=== PATIENT | male | born 1940 | race Caucasian/White ===

== ENCOUNTER → 2020-09-04 | Outpatient (CLI) | payer MEDICARE | LOC: RAD 10:31 | PROVIDERS: ATTEND Internal Medicine | DX: I47.1 Supraventricular tachycardia (principal) | CPT/HCPCS: 93306 ==

== ENCOUNTER 2022-11-24 08:28 | Observation (INO) | payer MEDICARE ==
[~2022-11-24] VITALS: Ht 172.7 cm; Wt 74.8 kg
[2022-11-24] MEDS ORDERED: SODIUM CHLORIDE FLUSH 10 ML SYR IV PRN (08:45)
[2022-11-24] MEDS ORDERED: DILTIAZEM HCL 5 MG/ML 5 ML VIAL IV ONE (08:45)
[2022-11-24] MEDS ORDERED: ASPIRIN 81 MG CHEW TAB PO ONE ×2 (08:45→10:30)
[2022-11-24 08:53] LABS: BASOPHILS # (AUTO) 0.1 (0.0-0.1); BASOPHILS % 0.7 % (0.0-1.0); EOSINOPHILS # (AUTO) 0.2 (0.0-0.4); EOSINOPHILS % 2.3 % (0.0-6.0); HEMATOCRIT 47.7 % (38.2-49.6); HEMOGLOBIN 15.8 g/dL (14.0-18.0); LYMPHOCYTES # (AUTO) 1.4 (1.0-3.2); LYMPHOCYTES % 18.6 % (18.0-39.1); MEAN CORPUSCULAR HEMOGLOBIN 31.9 pg (28-32); MEAN CORPUSCULAR HGB CONC 33.1 g/dL (31-35); MEAN CORPUSCULAR VOLUME 96.4 fL (81-99); MONOCYTES # (AUTO) 0.6 (0.2-0.8); MONOCYTES % 7.9 % (4.4-11.3); NEUTROPHILS # (AUTO) 5.4 (2.1-6.9); NEUTROPHILS % 70.2 % (38.7-80.0); PLATELET COUNT 237 x10e3/uL (140-360); RED BLOOD COUNT 4.95 x10e6/uL (4.3-5.7); RED CELL DISTRIBUTION WIDTH 12.6 % (11.7-14.4); WHITE BLOOD COUNT 7.69 x10e3/uL (4.8-10.8)
[2022-11-24 09:14] LABS: ALBUMIN 4.6 g/dL (3.5-5.0); ALBUMIN/GLOBULIN RATIO 1.4 (0.8-2.0); ANION GAP 15.9 mmol/L (8-16); CALCIUM 9.6 mg/dL (8.4-10.2); CREATININE, SERUM 1.1 mg/dL (0.72-1.25); POTASSIUM 3.9 mmol/L (3.5-5.1)
[2022-11-24] MEDS ORDERED: ONDANSETRON HCL INJ 2MG/ML 2ML 2 MG/ML VIAL IV PRN (10:30)
[2022-11-24] MEDS ORDERED: SODIUM CHLORIDE FLUSH 10 ML SYR INJ PRN (10:30)
[2022-11-24] MEDS: ENOXAPARIN INJ 80 MG/0.8 ML SYR SC SCH ×2 (10:52→20:36)
[2022-11-24] MEDS: DILTIAZEM HCL 30 MG TAB PO SCH ×3 (12:15→20:36)
[2022-11-24 13:00] VITALS: BP 138/81; PULSE 118; RESP 18; TEMP 98.4; O2SAT 100
[2022-11-24 13:45] VITALS: BP 128/82; PULSE 87; RESP 20; TEMP 98.1; O2SAT 100
[2022-11-24] MEDS: METOPROLOL TARTRATE 50 MG TAB PO SCH (18:12)
[2022-11-24 20:00] VITALS: BP 154/84; PULSE 80; RESP 20; TEMP 97.8; O2SAT 100
[2022-11-25 00:48] VITALS: BP 114/80; PULSE 77; RESP 18; TEMP 98.3; O2SAT 99
[2022-11-25 04:31] VITALS: BP 125/69; PULSE 57; RESP 19; TEMP 97.6; O2SAT 100
[2022-11-25 06:08] LABS: BASOPHILS # (AUTO) 0.1 (0.0-0.1); BASOPHILS % 0.9 % (0.0-1.0); EOSINOPHILS # (AUTO) 0.2 (0.0-0.4); EOSINOPHILS % 2.2 % (0.0-6.0); HEMATOCRIT 45.4 % (38.2-49.6); HEMOGLOBIN 14.8 g/dL (14.0-18.0); LYMPHOCYTES # (AUTO) 1.7 (1.0-3.2); LYMPHOCYTES % 20.8 % (18.0-39.1); MEAN CORPUSCULAR HEMOGLOBIN 31.6 pg (28-32); MEAN CORPUSCULAR HGB CONC 32.6 g/dL (31-35); MEAN CORPUSCULAR VOLUME 96.8 fL (81-99); MONOCYTES # (AUTO) 0.8 (0.2-0.8); NEUTROPHILS # (AUTO) 5.3 (2.1-6.9); NEUTROPHILS % 65.6 % (38.7-80.0); PLATELET COUNT 207 x10e3/uL (140-360); RED BLOOD COUNT 4.69 x10e6/uL (4.3-5.7); RED CELL DISTRIBUTION WIDTH 12.5 % (11.7-14.4); WHITE BLOOD COUNT 8.09 x10e3/uL (4.8-10.8)
[2022-11-25 06:38] LABS: ALBUMIN 3.9 g/dL (3.5-5.0); ALBUMIN/GLOBULIN RATIO 1.5 (0.8-2.0); ANION GAP 12.4 mmol/L (8-16); CALCIUM 9.3 mg/dL (8.4-10.2); CREATININE, SERUM 0.9 mg/dL (0.72-1.25); POTASSIUM 3.4 mmol/L (3.5-5.1)
[2022-11-25 08:45] VITALS: BP 125/69; PULSE 57; RESP 19; TEMP 97.6; O2SAT 100
[2022-11-25] MEDS ORDERED: ASPIRIN 81 MG ENTERIC COATED PO SCH (09:00)
[2022-11-25 09:05] VITALS: BP 129/67; PULSE 63; RESP 16; TEMP 97.8; O2SAT 100
[2022-11-25] MEDS: METOPROLOL TARTRATE 50 MG TAB PO SCH (09:10)
[2022-11-25] MEDS: ENOXAPARIN INJ 80 MG/0.8 ML SYR SC SCH (09:10)
[2022-11-25] MEDS ORDERED: POTASSIUM CHLORIDE 20 MEQ TAB CR PO ONE (10:00)
[2022-11-25] MEDS ORDERED: PEPCID20 MG PO (11:03)
[2022-11-25] MEDS ORDERED: ELIQUIS5 MG PO (11:03)
[2022-11-25] MEDS ORDERED: METOPROLOL TART50 MG PO (11:03)
[2022-11-25] MEDS ORDERED: ONDANSETRON HCL 4 MG ORAL DISINTEGRATING TAB PO PRN (11:30)
[2022-11-25 12:00] VITALS: BP 134/72; PULSE 54; RESP 18; TEMP 98; O2SAT 100
== END 2022-11-25 12:13 | disposition home or self-care (01) ==
LOC: ER 08:36 → ERHOLD 10:27 → MED/SURG2 12:59
PROVIDERS: ADMIT Internal Medicine; ATTEND Internal Medicine
DX: I48.0 Paroxysmal atrial fibrillation (principal); E87.6 Hypokalemia; I10 Essential (primary) hypertension; E78.5 Hyperlipidemia, unspecified; Z95.4 Presence of other heart-valve replacement; Z20.822 Contact with and (suspected) exposure to COVID-19; Z79.02 Long term (current) use of antithrombotics/antiplatelets; Z79.899 Other long term (current) drug therapy; Z98.890 Other specified postprocedural states
CPT/HCPCS: 36415 ×2; 71045; 80053 ×2; 82550 ×2; 82948; 83880; 84484 ×2; 85025 ×2; 93005; 94760; 99284; G0378 ×2; J1650 ×2; U0002